=== PATIENT | female | born 1995 | race Caucasian/White ===

== ENCOUNTER → 2020-09-16 10:27 | Outpatient (CLI) | payer OTHER, SELFPAY | PROVIDERS: PCP Registered Nurse Diabetes Educator; Visit Provider Registered Nurse Diabetes Educator | DX: N89.8 Other specified noninflammatory disorders of vagina (principal) | CPT/HCPCS: 87210; 87220 ==

== ENCOUNTER → 2023-04-23 13:12 | Outpatient (CLI) | payer OTHER, SELFPAY ==
[2023-04-23 14:53] LABS: Hemoglobin A1C% w Est Avg Glu 4.9 % (4.0-6.0)
[2023-04-23 15:09] LABS: Glucose 81 mg/dL (70-100)
[2023-04-23 15:25] LABS: Free T4, Direct Thyroxine 1.05 ng/dL (0.78-2.19)
[2023-04-23 15:27] LABS: Prolactin 14.7 ng/mL (3.0-18.6)
[2023-04-23 15:33] LABS: Follicle Stimulating Hormone 7.89 mIU/mL
[2023-04-23 15:39] LABS: Thyroid Stimulating Hormone 2.19 uIU/mL (0.47-4.68)
== END ==
PROVIDERS: PCP Registered Nurse Diabetes Educator; Referring Provider Obstetrics & Gynecology; Visit Provider Obstetrics & Gynecology
DX: Z31.69 Encounter for other general counseling and advice on procreation (principal); Z83.3 Family history of diabetes mellitus
CPT/HCPCS: 36415; 82947; 83001; 83002; 83036; 84146; 84439; 84443

== ENCOUNTER 2024-07-07 13:06 | Emergency (ER) | payer OTHER, SELFPAY ==
[2024-07-07 13:20] VITALS: PULSE 96; O2SAT 96
[2024-07-07 13:21] VITALS: BP 140/82; PULSE 90; O2SAT 97
[2024-07-07 13:25] VITALS: BP 140/82; PULSE 88; RESP 20; TEMP 36.7; O2SAT 97; BMI 26.3
--- NOTE | 2024-07-07 13:29 | DI.US.S_ITS ---
PROCEDURE: US OB <= 14 WEEKS FETUS INDICATIONS: 12 weeks ,bleeding OUTSIDE/PRIOR DATING DATA: Last menstrual period (LMP): 03/17/2024. LMP-based estimated date of delivery (VAIBHAV): 12/22/2024. First dating scan (date and location): 07/07/2024. Estimated date of delivery (VAIBHAV) from first dating scan: Not applicable TECHNIQUE: Real-time scanning was performed of the fetus and maternal pelvic organs, with image documentation. Endovaginal scanning was also performed to better visualize the fetus and maternal ovaries. COMPARISON: None. FINDINGS: Intrauterine gestational sac with debris is present with gestational age of 6 weeks 2 days. There is appearance of debris within the sac. No crown-rump length is identified. There is a 2.2 cm hypoechoic focus inferior to the right ovary. No increased vascularity. IMPRESSION: Intrauterine gestational sac with debris and no crown-rump length. This likely represents failed given last LMP if accurate. Hypoechoic focus inferior to the right ovary. This may represent an ovarian cyst. If there is positive beta HCG, ectopic cannot be definitively excluded and short interval follow-up is recommended. We strive to produce accurate, complete, and clear reports of imaging services. To assist us in improving patient care, this report was composed using standard report templates and voice recognition software. Therefore, it may contain abnormal punctuation, insertions and/or omissions. Occasional wrong-word or sound-alike substitutions may occur. Though we review the report and make efforts to correct it, we do recommend that the report be read carefully in proper context to recognize any text inaccuracies. Dictated by: Rosario Hope M.D. on 07/07/2024 at 15:47 Approved by: Rosario Hope M.D. on 07/07/2024 at 15:52
[2024-07-07 13:30] VITALS: BP 130/77; PULSE 87; O2SAT 97
[2024-07-07 13:54] LABS: Urine Volume 10mL (spun)
[2024-07-07 13:57] LABS: RBC Urine 10-30/HPF (0-5/HPF)
[2024-07-07 13:58] LABS: Add Manual Diff / Slide Review NO; Basophils Absolute Auto 100 /uL (0-100); Basophils Percent Auto 0.8 % (0-2); Eosinophils Absolute Auto 300 /uL (0-450); Eosinophils Percent Auto 3.7 % (2-4); Hematocrit 43.2 % (36-46); Hemoglobin 14.7 g/dL (12.0-16.0); Lymphocytes Absolute Auto 1900 /uL (1100-4500); Lymphocytes Percent Auto 20.8 % (25-40); Mean Corpuscular HGB Conc 34.1 % (30-36); Mean Corpuscular Hemoglobin 30.1 PG (26-34); Mean Corpuscular Volume 88.2 fL (80-100); Monocytes Absolute Auto 900 /uL (0-900); Monocytes Percent Auto 9.2 % (3-14); Neutrophils Absolute Auto 6100 /uL (1500-7000); Neutrophils Percent Auto 65.5 % (50-75); Platelet Count 302 X10^3/uL (150-400); Red Cell Distribution Width 13.2 % (11.6-14.8); White Blood Cell Count 9.3 X10^3/uL (4.5-11.0)
[2024-07-07 13:58] LABS: Bacteria Urine Few (2-10); Culture Indicated Urine Specimen Cultured; Squamous Epithelial Cell Urine 1-5 /HPF (0-5/HPF); WBC Urine 5-10/HPF (0-5/HPF)
[2024-07-07 14:00] VITALS: PULSE 89; O2SAT 98
[2024-07-07 14:07] LABS: Alanine Aminotransferase 23 IU/L (<35); Albumin 4.1 g/dL (3.5-5.0); Albumin Globulin Ratio 1.6 (1.0-2.8); Alkaline Phosphatase 56 U/L (38-126); Aspartate Aminotransferase 29 IU/L (14-36); Bilirubin Total 0.5 mg/dL (0.2-1.3); Blood Urea Nitrogen 13 mg/dL (7-17); Calcium 8.8 mg/dL (8.4-10.2); Carbon Dioxide 23 mmol/L (22-32); Chloride 108 mmol/L (98-107); Estimated Glomerular Filt Rate > 60 mL/min (>60); Globulin 2.6 g/dL (1.7-4.1); Glucose 123 mg/dL (70-100); HEMOLYSIS < 15 (0-50); Potassium 3.7 mmol/L (3.4-5.1); Sodium 137 mmol/L (137-145); Total Protein 6.7 g/dL (6.3-8.2)
--- NOTE | 2024-07-07 14:15 | ED.GENADULT ---
HPI - General Adult General Chief complaint: Vaginal Bleeding Stated complaint: vaginal bleeding 12 wks Time Seen by Provider: 07/07/24 13:36 Source: patient Mode of arrival: Ambulatory History of Present Illness HPI narrative: 29-year-old woman 12 weeks with spotting that is started a week ago. Today patient woke from sleep and found her underwear saturated with blood and left lower quadrant abdominal pain. There was no nausea, dizziness, palpitations or chest pain no recent fevers. Related Data Previous Rx's Medication Instructions Recorded oxycodone-acetaminophen 5 mg-325 1 tab PO Q6H PRN pain #10 tabs 07/07/24 mg tablet Allergies Allergy/AdvReac Type Severity Reaction Status Date / Time No Known Drug Allergies Allergy Verified 07/07/24 13:50 Review of Systems Review of Systems Narrative: Pertinent positive and negative findings as per HPI Patient History Medical History Migraines (~2004) ADHD Abnormal Pap smear of cervix (~2018) Family History Grandmother Diabetes mellitus Grandfather Cancer Diabetes mellitus Grandmother Cancer Grandmother Breast cancer Social History Smoking Status: Former smoker Smoking Status: Former smoker alcohol intake frequency: a few times a month Substance Use Type: does not use Exam Initial Vital Signs Initial Vital Signs: Vital Signs Pulse Rate 96 H 07/07/24 13:20 Pulse Oximetry 96 07/07/24 13:20 General: Alert appropriate in no acute distress Respiratory: Able to speak in full sentences, no obvious respiratory distress Cardiac: No tachycardia, no murmurs Abdomen: Minor suprapubic tenderness, no rebound or guarding Skin: No obvious rashes, warm and dry Neurologic: Grossly intact no obvious asymmetries or abnormalities Psych: appropriate insight and affect, cooperative Course Orders Ordered: ED Orders 07/07/24 13:29 US OB <= 14 weeks fetus Stat 07/07/24 13:30 Urine Culture Stat Urine Microscopic Stat 07/07/24 13:43 Complete Blood Count AUTO DIFF Stat Comprehensive Metabolic Panel Stat HCG Quantitative /Beta subunit Stat Type and Screen Stat Discontinued Medications Ibuprofen (Ibuprofen 400 Mg Tablet) 400 mg PO NOW ONE Stop: 07/07/24 15:43 Last Admin: 07/07/24 15:50 Dose: 400 mg Documented By: NORIS Oxycodone/Acetaminophen (Oxycodone/Acetaminophen 5/325 Tablet) 1 tab PO NOW ONE Stop: 07/07/24 15:43 Last Admin: 07/07/24 15:51 Dose: 1 tab Documented By: NORIS Vital Signs Vital signs: Vital Signs - 8 hr 07/07/24 13:20 07/07/24 13:21 07/07/24 13:21 Temperature Pulse Rate 96 H 90 Respiratory Rate Blood Pressure 140/82 Pulse Oximetry 96 97 Oxygen Delivery Method 07/07/24 13:25 07/07/24 13:30 07/07/24 13:30 Temperature 98.1 F Pulse Rate 88 87 Respiratory Rate 20 Blood Pressure 140/82 130/77 Pulse Oximetry 97 97 Oxygen Delivery Method Room Air 07/07/24 14:00 07/07/24 15:00 Temperature Pulse Rate 89 97 H Respiratory Rate Blood Pressure Pulse Oximetry 98 98 Oxygen Delivery Method Medical Decision Making Lab Data 07/07/24 13:43 07/07/24 13:43 Labs: Lab Results 07/07/24 07/07/24 Range/Units 13:30 13:43 WBC 9.3 (4.5-11.0) X10^3/uL RBC 4.90 (4.0-5.2) X10^6/uL Hgb 14.7 (12.0-16.0) g/dL Hct 43.2 (36-46) % MCV 88.2 (80-100) fL MCH 30.1 (26-34) PG MCHC 34.1 (30-36) % RDW 13.2 (11.6-14.8) % Plt Count 302 (150-400) X10^3/uL Neut % (Auto) 65.5 (50-75) % Lymph % (Auto) 20.8 L (25-40) % [place] % (Auto) 9.2 (3-14) % Eos % (Auto) 3.7 (2-4) % Baso % (Auto) 0.8 (0-2) % Neut # (Auto) 6100 (0509-3530) /uL Lymph # (Auto) 1900 (0153-8087) /uL [place] # (Auto) 900 (0-900) /uL Eos # (Auto) 300 (0-450) /uL Baso # (Auto) 100 (0-100) /uL Sodium 137 (137-145) mmol/L Potassium 3.7 (3.4-5.1) mmol/L Chloride 108 H (98-107) mmol/L Carbon Dioxide 23 (22-32) mmol/L BUN 13 (7-17) mg/dL Creatinine 0.59 (0.52-1.04) mg/dL Estimated GFR > 60 (>60) mL/min BUN/Creatinine Ratio 22.0 (6-22) Glucose 123 H (70-100) mg/dL Calcium 8.8 (8.4-10.2) mg/dL Total Bilirubin 0.5 (0.2-1.3) mg/dL AST 29 (14-36) IU/L ALT 23 (<35) IU/L Alkaline Phosphatase 56 (38-126) U/L Total Protein 6.7 (6.3-8.2) g/dL Albumin 4.1 (3.5-5.0) g/dL Globulin 2.6 (1.7-4.1) g/dL Albumin/Globulin Ratio 1.6 (1.0-2.8) HCG, Quant 6968.4 mIU/mL Urine RBC 10-30/hpf H (0-5/HPF) Urine WBC 5-10/hpf H (0-5/HPF) Ur Squamous Epith Cells 1-5 /hpf (0-5/HPF) Urine Bacteria Few (2-10) H (None) Ur Culture Indicated? Specimen cultured Vol Urine Centrifuged 10ml (spun) Blood Type AB Positive Antibody Screen Negative Urine Dip Bedside Urine Glucose Negative Bedside Urine Bilirubin - Negative Bedside Urine Ketone +/- 5 Urine Specific [place] 1.015 Bedside Urine Occult Blood +++ Bedside Urine pH 7.0 Bedside Urine Protein +/- 15 Bedside Urine Urobilinogen - Negative Bedside Urine Nitrite - Negative Bedside Urine Leukocytes +/- 15 Esterase Point of care testing: Urine Dip Bedside Urine Glucose Negative Bedside Urine Bilirubin - Negative Bedside Urine Ketone +/- 5 Urine Specific [place] 1.015 Bedside Urine Occult Blood +++ Bedside Urine pH 7.0 Bedside Urine Protein +/- 15 Bedside Urine Urobilinogen - Negative Bedside Urine Nitrite - Negative Bedside Urine Leukocytes +/- 15 Esterase MDM Narrative Medical decision making narrative: CC: 12 , vaginal bleeding Complicating co-morbidities: Patient has not had confirmatory ultrasound Data collected from: patient Medical records reviewed: Primary care notes with initial diagnosis June 06 reviewed Differential considered: Miscarriage, ectopic, other vaginal bleeding Exam documented above, pertinent findings include: Lab Test results independently reviewed as above. Pertinent findings: CBC is unremarkable with no evidence of acute anemia Chemistries are reassuring Quantitative hCG is 6968 Urine has lots of red cells some white cells occasional bacteria we will wait for culture returned prior to calling this an infection Imaging studies independently reviewed: PROCEDURE: US OB <= 14 WEEKS FETUS INDICATIONS: 12 weeks ,bleeding OUTSIDE/PRIOR DATING DATA: Last menstrual period (LMP): 03/17/2024. LMP-based estimated date of delivery (VAIBHAV): 12/22/2024. First dating scan (date and location): 07/07/2024. Estimated date of delivery (VAIBHAV) from first dating scan: Not applicable TECHNIQUE: Real-time scanning was performed of the fetus and maternal pelvic organs, with image documentation. Endovaginal scanning was also performed to better visualize the fetus and maternal ovaries. COMPARISON: None. FINDINGS: Intrauterine gestational sac with debris is present with gestational age of 6 weeks 2 days. There is appearance of debris within the sac. No crown-rump length is identified. There is a 2.2 cm hypoechoic focus inferior to the right ovary. No increased vascularity. IMPRESSION: Intrauterine gestational sac with debris and no crown-rump length. This likely represents failed given last LMP if accurate. Hypoechoic focus inferior to the right ovary. This may represent an ovarian cyst. If there is positive beta HCG, ectopic cannot be definitively excluded and short interval follow-up is recommended. We strive to produce accurate, complete, and clear reports of imaging services. To assist us in improving patient care, this report was composed using standard report templates and voice recognition software. Therefore, it may contain abnormal punctuation, insertions and/or omissions. Occasional wrong-word or sound-alike substitutions may occur. Though we review the report and make efforts to correct it, we do recommend that the report be read carefully in proper context to recognize any text inaccuracies. Dictated by: Rosario Hope M.D. on 07/07/2024 at 15:47 Treatments: Oral ibuprofen, oral Percocet Discussion: 29-year-old woman 12 weeks by LMP with likely blighted ovum. Miscarriage currently starting. HCG is just above 6000, symptoms and ultrasound are consistent. Reviewed findings, reviewed anticipated course of miscarriage over the next 48 hours. I did recommend a follow up hCG and she does have an appointment with her primary physician on Wednesday. Outpatient lab slip will be given. Ultrasound does show likely ovarian cyst but would like to clearly demonstrate hCG is decreasing. Patient understands, questions are answered there was no indication for further imaging or hospitalization she is safe for discharge Discharge Plan Departure Patient Disposition: Home Clinical Impression: Miscarriage Instructions: DI for Miscarriage Activity Restrictions/Additional Instructions: Thank you for coming in today, I am sorry to have to share such sad news. You are definitely having a miscarriage. Over the next 2 days expect to have fairly heavy bleeding with quite a few clots. There will be some cramping. Using 400 mg of ibuprofen (2 [id number] pills) and 1 Tylenol every 6 hours can be very helpful in controlling pain. For severe pain you can use 400 mg of ibuprofen and 1 Percocet. Percocet is a narcotic and will help with the pain and cramping, it will likely also cause constipation On Wednesday, see if you can schedule an appointment with Mauricio to follow up, I have given you a lab slip to recheck your quantitative hCG to make sure that it is appropriately decreasing If you find that you are having severe bleeding, going through more than a heavy pad an hour or bright red blood coming from your vagina or you are feeling dizzy or lightheaded it would be appropriate to return to the emergency department. Your blood type is AB-positive, you do not need a RhoGAM shot today I wish you the best Prescriptions: New oxycodone-acetaminophen 5-325 mg tablet 1 tab PO Q6H PRN (Reason: pain) Qty: 10 0RF Referrals: Mauricio Hernandez ARNP [Primary Care Provider] - Stand Alone Forms: Patient Portal/API/Survey
[2024-07-07 14:23] LABS: HCG Quantitative /Beta subunit 6968.4 mIU/mL
[2024-07-07 15:00] VITALS: PULSE 97; O2SAT 98
[2024-07-07] MEDS: IBUPROFEN 400 MG TABLET PO (15:50)
[2024-07-07] MEDS: OXYCODONE/ACETAMINOPHEN 5/325 TABLET 1 TAB PO (15:51)
== END 2024-07-07 15:56 | disposition home or self-care (01) ==
PROVIDERS: Emergency Provider Emergency Medicine; PCP Registered Nurse Diabetes Educator
DX: O03.9 Complete or unspecified spontaneous abortion without complication (principal)
CPT/HCPCS: 76801; 76817; 80053; 81003; 81015; 84702; 85025; 86850; 86900; 86901; 87086; 99283; 99284

== ENCOUNTER → 2024-07-12 12:31 | Outpatient (CLI) | payer OTHER, SELFPAY ==
[2024-07-12 20:43] LABS: HCG Quantitative /Beta subunit 311.56 mIU/mL
== END ==
PROVIDERS: PCP Registered Nurse Diabetes Educator
DX: O03.9 Complete or unspecified spontaneous abortion without complication (principal)
CPT/HCPCS: 36415; 84702

== ENCOUNTER → 2025-05-07 12:01 | Outpatient (CLI) | payer BC, SELFPAY ==
[2025-05-07 14:02] LABS: HCG Quantitative /Beta subunit 1413.6 mIU/mL
== END ==
PROVIDERS: PCP Registered Nurse Diabetes Educator; Referring Provider Student in an Organized Health Care Education/Training Program; Visit Provider Student in an Organized Health Care Education/Training Program
DX: N91.2 Amenorrhea, unspecified (principal)
CPT/HCPCS: 36415; 84702

== ENCOUNTER → 2025-05-10 08:16 | Outpatient (CLI) | payer BC, SELFPAY ==
[2025-05-10 09:27] LABS: HCG Quantitative /Beta subunit 5024.8 mIU/mL
== END ==
PROVIDERS: Obstetrics & Gynecology; PCP Registered Nurse Diabetes Educator; Referring Provider Registered Nurse Diabetes Educator; Visit Provider Emergency Medicine
DX: Z32.01 Encounter for pregnancy test, result positive (principal)
CPT/HCPCS: 36415; 84702

== ENCOUNTER → 2025-05-23 15:34 | Outpatient (CLI) | payer BC, SELFPAY ==
[2025-05-25 13:10] LABS: Trichomoas vaginalis Negative (Negative)
== END ==
PROVIDERS: PCP Registered Nurse Diabetes Educator; Visit Provider Obstetrics & Gynecology
DX: N89.8 Other specified noninflammatory disorders of vagina (principal)
CPT/HCPCS: 81514

== ENCOUNTER → 2025-05-28 13:47 | Outpatient (CLI) | payer BC, SELFPAY ==
[2025-05-28 14:47] LABS: Add Manual Diff / Slide Review NO; Hematocrit 40.5 % (36-46); Hemoglobin 13.8 g/dL (12.0-16.0); Lymphocytes Absolute Auto 1800 /uL (1100-4500); Mean Corpuscular HGB Conc 34.0 % (30-36); Mean Corpuscular Hemoglobin 29.4 PG (26-34); Mean Corpuscular Volume 86.5 fL (80-100); Platelet Count 312 X10^3/uL (150-400)
[2025-05-28 16:28] LABS: Hepatitis B Surface Antigen NEGATIVE s/c (NEGATIVE)
[2025-05-28 16:36] LABS: HIV 1 & 2 Ab/Ag 4th Gen Combo NEGATIVE (NEGATIVE); Hep C Virus Ab w/Reflex Quant NEGATIVE s/c (NEGATIVE)
== END ==
PROVIDERS: PCP Registered Nurse Diabetes Educator; Referring Provider Obstetrics & Gynecology; Visit Provider Obstetrics & Gynecology
DX: Z34.00 Encounter for supervision of normal first pregnancy, unspecified trimester (principal)
CPT/HCPCS: 36415; 80055; 86787; 86803; 86850; 86900; 86901; 87086; 87389

== ENCOUNTER → 2025-06-25 15:14 | Outpatient (CLI) | payer BC, SELFPAY ==
[2025-06-25 16:17] LABS: Natera Collection Specimen Collected
== END ==
PROVIDERS: PCP Registered Nurse Diabetes Educator; Referring Provider Obstetrics & Gynecology; Visit Provider Obstetrics & Gynecology
DX: Z34.81 Encounter for supervision of other normal pregnancy, first trimester (principal)
CPT/HCPCS: 36415